=== PATIENT | female | born 1975 | race Caucasian/White ===

== ENCOUNTER 2018-03-06 19:45 | Observation (INO) ==
[2018-03-06] MEDS ORDERED: SODIUM CHLORIDE 0.9% 2,000 ML IV STA (19:56)
[2018-03-06] MEDS ORDERED: ASPIRIN 325 MG TABLET PO STA (19:56)
[2018-03-06 20:22] LABS: Basophils # 0.1 10*3/uL (0.0-0.2); Eosinophils # 0.1 10*3/uL (0.0-0.87); Eosinophils % 1.7 % (0.00-10.9); Hematocrit 38.8 VOL% (35.7-47.0); Hemoglobin 12.4 GM/DL (12.0-16.0); Immature Granulocytes % 0.2 %; Immature Granulocytes Absolute 0.02 #; Lymphocytes # 3.6 10*3/uL (1.4-4.0); Lymphocytes % 44.8 % (21.3-54.2); Mean Corpuscular Hemoglobin 28 PG (27-34); Mean Corpuscular Volume 86.6 FL (87-102); Mean Platelet Volume 11.5 FL (9.6-12.0); Monocytes # 0.5 10*3/uL (0.11-0.8); Monocytes % 5.9 % (1.7-12.7); Neutrophils # 3.7 10*3/uL (1.4-7.4); Neutrophils % 46.4 % (38.7-73.9); Platelet Count 302 T/CUMM (130-400); Red Blood Count 4.48 MC/CUMM (3.8-5.5)
[2018-03-06 20:41] LABS: Alanine Aminotransferase 14 U/L (13-56); Albumin 3.7 G/DL (3.4-5.0); Alkaline Phosphatase 82 U/L (45-117); Aspartate Amino Transferase 10 U/L (0-37); Bilirubin,Total < 0.39 MG/DL (0.2-1.0); Blood Urea Nitrogen 9 MG/DL (7-18); Calcium 8.7 MG/DL (8.5-10.1); Glucose 107 MG/DL (74-106); Osmolality,Calculated 275.5 MOS/KG (273-304); Potassium 3.2 MMOL/L (3.5-5.1); Sodium 139 MMOL/L (136-145); Total Protein 8.4 G/DL (6.4-8.3)
[2018-03-07] MEDS ORDERED: ONDANSETRON 4 MG/2 ML VIAL IV PRN (00:28)
[2018-03-07] MEDS ORDERED: NITROGLYCERIN SL 0.4 MG TABLET SL PRN (00:28)
[2018-03-07] MEDS ORDERED: FAMOTIDINE 20 MG TABLET PO SCH (00:28)
[2018-03-07] MEDS ORDERED: MORPHINE 4 MG/1 ML VIAL IV PRN (00:28)
[2018-03-07] MEDS ORDERED: SODIUM CHLORIDE 0.9% 1,000 ML IV SCH (00:28)
[2018-03-07] MEDS ORDERED: ALUM/MAG/SIMETH/LIDO VISC 1:1 30 ML BOTTLE PO ONE (01:00)
[2018-03-07 01:32] LABS: Risk Ratio 2.73; Thyroid Stimulating Hormone 2.19 uIU/ml (0.358-3.74); VLDL CHOLESTEROL 31.4 MG/DL
[2018-03-07 07:24] LABS: Apearance,Urine Clear (Clear); Bilirubin,Urine Negative (Negative); Blood, Urine Negative (Negative); Glucose,Urine (UA) Negative (Negative); Ketones,Urine Negative (Negative); Nitrite,Urine Negative (Negative); Protein,Urine Negative; Urine Color Straw (Yellow)
[2018-03-07 07:25] LABS: Urine Urobilinogen 0.2 EU/DL (0.2-1.0)
[2018-03-07 08:15] LABS: Mucus,Urine Few /LPF (Occasional)
[2018-03-07] MEDS ORDERED: ENOXAPARIN 40 MG/0.4 ML SYRINGE SUBCUT SCH (09:00)
[2018-03-07] MEDS ORDERED: ASPIRIN EC 81 MG TABLET PO SCH (09:00)
[2018-03-07] MEDS ORDERED: ESTRADIOL 2 MG TABLET PO SCH (09:00)
[2018-03-07] MEDS ORDERED: DOCUSATE SODIUM 100 MG CAPSULE PO SCH (09:00)
[2018-03-07 11:39] VITALS: BP 132/72
[2018-03-07] MEDS ORDERED: METOPROLOL TARTRATE 25 MG TABLET PO PRN ×2 (11:41→11:47)
[2018-03-07] MEDS ORDERED: SIMVASTATIN 40 MG TABLET PO SCH (21:00)
== END 2018-03-07 14:20 | disposition home or self-care (01) ==
LOC: EDUNIT# → EDBD → N.ED 19:45 → N.EDINP 19:45 → SUATTDRO 21:49 → N.TELES 23:52
PROVIDERS: ADMIT Hospitalist; ATTEND Internal Medicine